=== PATIENT | male | born 1960 | race Two or more races ===

== ENCOUNTER 2018-09-11 15:47 | Inpatient (IN) | payer SELFPAY ==
[~2018-09-11] VITALS: Ht 167.6 cm; Wt 80.9 kg
[2018-09-11] MEDS ORDERED: ONDANSETRON HCL 4 MG/2 ML VIAL IV ONE (16:15)
[2018-09-11] MEDS ORDERED: MORPHINE SULFATE 4 MG/ML SYR/VIAL IV ONE (16:15)
[2018-09-11 16:44] LABS: Basophils # (auto) 0.1 uL; Basophils % (auto) 1.1 % (0.0-2.0); Eosinophils # (auto) 0.1 uL; Eosinophils % (auto) 1.9 % (0.0-7.0); Hematocrit 39.9 % (41.0-53.0); Lymphocytes # (auto) 2.2 uL; Lymphocytes % (auto) 31.9 % (10.0-50.0); Mean Corpuscular Hgb Conc. 35.1 g/dL (32.0-36.0); Mean Corpuscular Volume 90.9 fL (80.0-100.0); Monocytes # (auto) 0.6 uL; Monocytes % (auto) 8.4 % (0.0-12.0); Neutrophils # (auto) 3.9 uL; Neutrophils % (auto) 56.7 % (37.0-80.0); Nucleated Red Blood Cells % 0.1 %; Platelet Count (auto) 212 10^3/uL (140-450); Red Blood Cells 4.39 10^6/uL (4.5-5.90); Red Cell Distribution Width 12.8 % (11.8-14.3); White Blood Cell 6.9 10^3/uL (4.4-10.8)
[2018-09-11 16:50] LABS: INR 0.96 (0.9-1.15); Partial Thromboplastin Time 24.7 sec (23.64-32.05)
[2018-09-11 16:52] LABS: Albumin 3.4 g/dL (3.4-5.0); BUN/Creatinine Ratio 33.7; Calcium 8.6 mg/dL (8.5-10.1); Potassium 4.4 mmol/L (3.5-5.1)
[2018-09-11 16:55] LABS: Bilirubin, Total 0.4 mg/dL (0.2-1.0); Total Protein 7.2 g/dL (6.4-8.2)
[2018-09-11] MEDS ORDERED: MORPHINE SULF INJ 2 MG/ML SYRINGE 1ML IV PRN (19:30)
[2018-09-11] MEDS ORDERED: NITROGLYCERIN 0.4 MG SL TAB SL PRN (19:30)
[2018-09-11] MEDS ORDERED: SODIUM CHLORIDE 0.9% 1,000 ML IV ONE (19:30)
[2018-09-11] MEDS ORDERED: DEXTROSE (50%) 50ML SYRG IV PRN (19:30)
[2018-09-11] MEDS ORDERED: POLYETHYLENE GLYCOL 17 GM PWDR PO PRN (19:30)
[2018-09-11] MEDS ORDERED: ONDANSETRON HCL 4 MG/2 ML VIAL IV PRN (19:30)
[2018-09-11 20:51] VITALS: BP 101/66
--- NOTE | 2018-09-11 20:51 | NUR ---
MS admit from ER TREVORLUCIO admitted to [facility] room 288B. Patient oriented to PANCHO GARCIA, primary RN, unit, room, bed, and unit policies regarding patient care and visiting hours. Room air, pain level 0/10, and ambulates independently without assistive devices. Bed locked in lowest position, side rails up x2, and call light within reach. IV 20 g in right forearm running x1 bag NS at 100 ml/hr inserted on 09/11/18. Skin intact. Patient weighed by bedscale and encouraged to call if they need something. All questions and concerns addressed, patient verbalized understanding.
[2018-09-11] MEDS: metroNIDAZOLE 500MG/100ML 100 ML IV SCH (22:28)
[2018-09-11] MEDS: ACCU-CHEK COMFORT CURVE STRIP VI SCH (22:29)
[2018-09-11] MEDS: InsuLIN REG 1unit/0.01ml Soln (100units/ml) SC SCH (22:29)
[2018-09-11] MEDS: DOCUSATE SOD 100 MG CAP PO SCH (22:29)
[2018-09-11] MEDS: GABAPENTIN 100 MG CAP PO SCH (22:29)
[2018-09-11] MEDS ORDERED: METF-370 PO (23:05)
[2018-09-11] MEDS ORDERED: GLIP-115 PO (23:05)
[2018-09-12] MEDS ORDERED: TEMAZEPAM 15 MG CAP PO PRN (00:05)
[2018-09-12 05:37] VITALS: BP 114/71
[2018-09-12] MEDS: ACCU-CHEK COMFORT CURVE STRIP VI SCH ×4 (05:48→22:13)
[2018-09-12] MEDS: InsuLIN REG 1unit/0.01ml Soln (100units/ml) SC SCH ×4 (05:48→22:47)
[2018-09-12] MEDS: metroNIDAZOLE 500MG/100ML 100 ML IV SCH ×3 (05:48→22:12)
[2018-09-12 06:22] LABS: Basophils # (auto) 0.1 uL; Basophils % (auto) 1.1 % (0.0-2.0); Eosinophils # (auto) 0.2 uL; Eosinophils % (auto) 3.5 % (0.0-7.0); Hematocrit 38.4 % (41.0-53.0); Hemoglobin 13.7 g/dL (13.5-17.5); Lymphocytes # (auto) 2.7 uL; Lymphocytes % (auto) 37.8 % (10.0-50.0); Mean Corpuscular Hemoglobin 32.1 pg (28.0-32.0); Mean Corpuscular Hgb Conc. 35.7 g/dL (32.0-36.0); Monocytes # (auto) 0.6 uL; Monocytes % (auto) 7.9 % (0.0-12.0); Neutrophils # (auto) 3.5 uL; Neutrophils % (auto) 49.7 % (37.0-80.0); Nucleated Red Blood Cells % 0.1 %; Platelet Count (auto) 217 10^3/uL (140-450); Red Blood Cells 4.26 10^6/uL (4.5-5.90); Red Cell Distribution Width 12.6 % (11.8-14.3); White Blood Cell 7.1 10^3/uL (4.4-10.8)
[2018-09-12 06:23] LABS: Calcium 8.5 mg/dL (8.5-10.1); Potassium 3.9 mmol/L (3.5-5.1)
[2018-09-12 06:25] LABS: BUN/Creatinine Ratio 36.8
[2018-09-12 08:30] VITALS: BP 115/73
[2018-09-12] MEDS: DOCUSATE SOD 100 MG CAP PO SCH (11:27)
[2018-09-12] MEDS: LEVOFLOXACIN 500MG 100 ML IV SCH (11:27)
--- NOTE | 2018-09-12 12:42 | NUR ---
Gave pt DPA. Pt stated he did not ask for one.
[2018-09-12] MEDS: GABAPENTIN 100 MG CAP PO SCH ×2 (12:49→22:12)
[2018-09-12 13:09] VITALS: BP 119/70
[2018-09-12] MEDS ORDERED: GOLYTELY 4L KIT PO ONE (13:45)
[2018-09-12] MEDS: PANTOPRAZOLE 40 MG TAB PO SCH ×2 (14:46→22:13)
[2018-09-12 17:30] VITALS: BP 109/60
[2018-09-12] MEDS: MORPHINE SULF INJ 2 MG/ML SYRINGE 1ML IV PRN (19:35)
--- NOTE | 2018-09-12 19:45 | NUR ---
Assumed care of patient. Patient is sitting in chair at bedside. A&Ox4. C/O 8/10 upper abd pain. Patient medicated for pain per orders. Patient is on room air with no distress or SOB noted.Discussed POC, and patient verbalizes understanding. Patient encouraged to call for assistance if needed. Will continue to monitor PRN.
[2018-09-12 21:38] VITALS: BP 130/76
[2018-09-12] MEDS ORDERED: TEMAZEPAM 15 MG CAP PO SCH (22:00)
--- NOTE | 2018-09-13 | NUR ---
Patient instructed that he may not eat or drink anything beginning at this time due to scheduled procedures. Patient verbalizes understanding.
[2018-09-13 05:19] VITALS: BP 114/66
[2018-09-13] MEDS: metroNIDAZOLE 500MG/100ML 100 ML IV SCH ×3 (05:58→22:28)
[2018-09-13] MEDS: InsuLIN REG 1unit/0.01ml Soln (100units/ml) SC SCH ×4 (05:58→22:29)
[2018-09-13] MEDS: ACCU-CHEK COMFORT CURVE STRIP VI SCH ×4 (05:59→22:28)
[2018-09-13] MEDS ORDERED: GOLYTELY 4L KIT PO ONE (06:00)
--- NOTE | 2018-09-13 07:45 | NUR ---
Opening Shift Note Assumed care of patient, awake, alert, and oriented x4. No S/S of distress/SOB, but patient is reporting abdominal pain of 5/10. IV is in right forearm 20 gauge asymptomatic, intact, patent, and saline locked. Bed is locked and in lowest position and call light is within reach. Instructed on POC and to call for assist PRN, and patient verbalized understanding. Will continue to monitor for changes Q1hr and PRN.
[2018-09-13 09:01] VITALS: BP 117/68
--- NOTE | 2018-09-13 09:30 | NUR ---
IV removal IV DC'd with clean sterile technique, catheter fully intact. Pressure dressing applied to site. Patient tolerated well.
--- NOTE | 2018-09-13 10:00 | NUR ---
IV insertion IV access obtained, via clean sterile technique by inserting gauge catheter at 20 after 1 attempt. IV secured properly. No trauma to site. Patient tolerated well.
[2018-09-13] MEDS: LEVOFLOXACIN 500MG 100 ML IV SCH (10:23)
[2018-09-13] MEDS: MORPHINE SULF INJ 2 MG/ML SYRINGE 1ML IV PRN ×2 (10:23→19:45)
[2018-09-13] MEDS: PANTOPRAZOLE 40 MG TAB PO SCH (10:23)
[2018-09-13] MEDS: GABAPENTIN 100 MG CAP PO SCH ×2 (10:24→22:28)
[2018-09-13] MEDS ORDERED: FLUMAZENIL 0.1 MG/ML INJ 10ML MDV IV ONE (10:24)
[2018-09-13] MEDS ORDERED: LIDOCAINE VISCOUS 2% 15ML UD ONE (10:24)
[2018-09-13] MEDS ORDERED: SODIUM CHLORIDE LOCK 10 ML ONE (10:24)
[2018-09-13] MEDS ORDERED: NALOXONE HCL 0.4 MG/ML VIAL ONE (10:24)
[2018-09-13] MEDS ORDERED: diphenhdrAMINE HCL 50 MG/1 ML VL ONE (10:25)
--- NOTE | 2018-09-13 11:00 | NUR ---
Pre-op Patient taken down to pre-op via hospital bed. No distress noted at time of departure.
[2018-09-13] MEDS: MIDAZOLAM HCL 5 MG/ML-1ML VIAL ONE ×2 (12:25→12:29)
[2018-09-13] MEDS: fentaNYL CITRATE 100 MCG/2 ML VL ONE ×2 (12:25→12:29)
[2018-09-13 13:18] VITALS: BP 121/77
--- NOTE | 2018-09-13 13:41 | NUR ---
Patient returned from Post-op via hospital bed. No distress noted at time of arrival. Will continue to monitor patient Q1.
[2018-09-13 14:20] LABS: Urine Bacteria NONE SEEN /hpf (None Seen); Urine Blood Negative /uL (Negative); Urine Specific Gravity 1.015 (1.001-1.035); Urine WBC <1 /hpf (0 - 3)
[2018-09-13 16:30] VITALS: BP 110/69
--- NOTE | 2018-09-13 19:30 | NUR ---
OPENING SHIFT NOTE. Patient is lying in bed, with family at bedside. A&Ox4. C/O 11/18 upper abdominal pain. Patient medicated for pain according to orders. Patient is currently on room air with no s/s of SOB or distress. POC discussed with patient and family who verbalize understanding. Bed in low locked position and call lombardi is within reach. Patient encouraged to call for assistance if needed. Will continue to monitor PRN.
[2018-09-13 22:00] VITALS: BP 108/70
[2018-09-14 05:00] VITALS: BP 117/71
[2018-09-14] MEDS: metroNIDAZOLE 500MG/100ML 100 ML IV SCH (05:44)
[2018-09-14] MEDS: InsuLIN REG 1unit/0.01ml Soln (100units/ml) SC SCH ×2 (06:23→11:30)
[2018-09-14] MEDS: ACCU-CHEK COMFORT CURVE STRIP VI SCH ×2 (06:24→11:30)
--- NOTE | 2018-09-14 07:30 | NUR ---
Opening Shift Note Assumed care of patient, awake, alert, and oriented x4. No S/S of distress/SOB, but patient reporting medial abdominal pain of 8/10. IV is in right forearm 20 gauge asymptomatic, intact, patent, and saline locked. Bed locked and in lowest position and call light is within reach. Instructed on POC and to call for assist PRN, and patient verbalized understanding. Will continue to monitor for changes Q1hr and PRN.
[2018-09-14 09:00] VITALS: BP 100/65
[2018-09-14] MEDS: LEVOFLOXACIN 500MG 100 ML IV SCH (09:02)
[2018-09-14] MEDS: GABAPENTIN 100 MG CAP PO SCH (09:02)
[2018-09-14] MEDS: MORPHINE SULF INJ 2 MG/ML SYRINGE 1ML IV PRN (09:02)
[2018-09-14] MEDS ORDERED: PANTOPRAZOLE 40 MG TAB PO SCH (10:00)
[2018-09-14] MEDS ORDERED: LEVO-28 PO (10:22)
[2018-09-14] MEDS ORDERED: METR500T PO (10:22)
--- NOTE | 2018-09-14 11:50 | NUR ---
Discharge instructions given as ordered. Encourage to follow up with PMD as instructed. All questions and concerns addressed. Patient verbalized understanding. Medication reconciliation form completed and copy given to patient. IV removed with catheter intact, pressure dressing applied. Patient walked to vehicle with all personal belongings, accompanied family member. No distress noted at time of departure.
== END 2018-09-14 11:50 | disposition home or self-care (01) | DRG 392 ==
LOC: ER 15:49 → OVERFLOW 19:39 → WEST WING 20:51
PROVIDERS: ADMIT Nurse Practitioner Acute Care; ATTEND Internal Medicine
PROC: 0DB68ZX Excision of Stomach, Via Natural or Artificial Opening Endoscopic, Diagnostic (ICD-10-PCS; principal; 2018-09-13 12:21)
PROC: 0DJD8ZZ Inspection of Lower Intestinal Tract, Via Natural or Artificial Opening Endoscopic (ICD-10-PCS; 2018-09-13 12:21)
DX: K29.70 Gastritis, unspecified, without bleeding (principal); K57.32 Diverticulitis of large intestine without perforation or abscess without bleeding; K52.9 Noninfective gastroenteritis and colitis, unspecified; E11.42 Type 2 diabetes mellitus with diabetic polyneuropathy; K59.00 Constipation, unspecified; R59.9 Enlarged lymph nodes, unspecified; Z79.84 Long term (current) use of oral hypoglycemic drugs
CPT/HCPCS: 36415; 71045; 74176; 80048; 80053; 80061; 81001; 82150; 82962; 83036; 83690; 85025; 85610; 85730; 86850; 86900; 86901; 93005; 93925; 94761; 96374; 96375; G0378; J1815; J1956; J2250; J2405; J3490

== ENCOUNTER 2018-10-05 16:34 | Inpatient (IN) | payer SELFPAY ==
[~2018-10-05] VITALS: Ht 170.2 cm; Wt 153.0 kg
[~2018-10-05 16:34] MED LIST: GLIP-115 PO; LEVO-28 PO; METF-370 PO; METR500T PO
[2018-10-05] MEDS ORDERED: SODIUM CHLORIDE 0.9% 1,000 ML IVB ONE (16:54)
[2018-10-05 17:36] LABS: Basophils # (auto) 0.1 uL; Basophils % (auto) 1.1 % (0.0-2.0); Eosinophils # (auto) 0.1 uL; Eosinophils % (auto) 2.1 % (0.0-7.0); Hemoglobin 14.8 g/dL (13.5-17.5); Lymphocytes # (auto) 1.8 uL; Lymphocytes % (auto) 28.2 % (10.0-50.0); Mean Corpuscular Hemoglobin 31.7 pg (28.0-32.0); Mean Corpuscular Hgb Conc. 35.3 g/dL (32.0-36.0); Mean Corpuscular Volume 89.8 fL (80.0-100.0); Monocytes # (auto) 0.5 uL; Monocytes % (auto) 8.1 % (0.0-12.0); Neutrophils # (auto) 3.9 uL; Neutrophils % (auto) 60.5 % (37.0-80.0); Platelet Count (auto) 232 10^3/uL (140-450); Red Blood Cells 4.67 10^6/uL (4.5-5.90); Red Cell Distribution Width 13.2 % (11.8-14.3); White Blood Cell 6.5 10^3/uL (4.4-10.8)
[2018-10-05 17:47] LABS: Albumin 3.3 g/dL (3.4-5.0); BUN/Creatinine Ratio 16.2; Calcium 8.4 mg/dL (8.5-10.1); Potassium 4.1 mmol/L (3.5-5.1)
[2018-10-05 17:50] LABS: Bilirubin, Total 0.4 mg/dL (0.2-1.0); Total Protein 7.4 g/dL (6.4-8.2)
[2018-10-05] MEDS ORDERED: ONDANSETRON HCL 4 MG/2 ML VIAL IV ONE (18:00)
[2018-10-05] MEDS ORDERED: PIPERACILLIN-TAZOB 3.375GM 100 ML IV ONE (18:00)
[2018-10-05] MEDS ORDERED: MORPHINE SULFATE 4 MG/ML SYR/VIAL IV ONE (18:00)
[2018-10-05] MEDS ORDERED: ATOR10TA52 PO (18:53)
[2018-10-05 19:00] LABS: Urine Bacteria NONE SEEN /hpf (None Seen); Urine Blood Negative /uL (Negative); Urine Hyaline Cast FEW /lpf (0 - 2); Urine Mucus MODERATE (None Seen); Urine WBC 5 /hpf (0 - 3)
[2018-10-05] MEDS ORDERED: PROMETHAZINE HCL 25 MG/ML 1ML IV PRN (19:00)
[2018-10-05] MEDS ORDERED: cefTRIAXone 1GM/50ML D5W 50 ML IV ONE (19:00)
[2018-10-05] MEDS ORDERED: ACETAMINOPHEN 500 MG TAB PO PRN (19:00)
[2018-10-05] MEDS ORDERED: DEXTROSE (50%) 50ML SYRG IV PRN (19:00)
[2018-10-05] MEDS ORDERED: FAMOTIDINE (10MG/ML) 2ML VL IV ONE (19:15)
[2018-10-05] MEDS: SODIUM CHLORIDE 0.9% 1,000 ML IV SCH ×2 (19:15→20:13)
[2018-10-05 19:45] VITALS: BP 113/69
--- NOTE | 2018-10-05 19:50 | NUR ---
MS admit from ER LUCIO MURRAY admitted to [facility]. Patient oriented to ROHAN MEZA OCA, primary RN, unit, room, bed, and unit policies regarding patient care and visiting hours. Patient weighed by bedscale and encouraged to call if they need something. All questions and concerns addressed, patient verbalized understanding. Bed in lowest locked position, call light within reach, side rails up x2. Will continue to monitor Q1hr and PRN.
[2018-10-05] MEDS: NALBUPHINE HCL 10 MG/1ml INJECTION IV PRN (20:04)
[2018-10-05] MEDS: metroNIDAZOLE 500MG/100ML 100 ML IV SCH (21:46)
[2018-10-05 22:00] VITALS: BP 113/69
[2018-10-06] MEDS: ACCU-CHEK COMFORT CURVE STRIP VI SCH ×5 (00:19→23:55)
[2018-10-06] MEDS: NALBUPHINE HCL 10 MG/1ml INJECTION IV PRN ×3 (03:03→21:03)
[2018-10-06 05:00] VITALS: BP 125/70
[2018-10-06] MEDS: metroNIDAZOLE 500MG/100ML 100 ML IV SCH ×3 (05:54→21:28)
[2018-10-06] MEDS: InsuLIN REG 1unit/0.01ml Soln (100units/ml) SC SCH ×5 (05:54→23:55)
[2018-10-06 08:00] VITALS: BP 139/75
[2018-10-06 08:38] VITALS: BP 139/75
[2018-10-06] MEDS: FAMOTIDINE (10MG/ML) 2ML VL IV SCH ×2 (09:34→21:28)
[2018-10-06] MEDS: cefTRIAXone 1GM/50ML D5W 50 ML IV SCH (09:34)
[2018-10-06 12:50] VITALS: BP 141/78
[2018-10-06] MEDS: SODIUM CHLORIDE 0.9% 1,000 ML IV SCH ×2 (14:55→23:55)
[2018-10-06 16:30] VITALS: BP 127/72
[2018-10-06] MEDS: traMADol HCL 50 MG TAB PO PRN (17:00)
--- NOTE | 2018-10-06 18:29 | NUR ---
BARIUM ENEMA CANNOT BE DONE. THERE IS NO RADIOLOGIST. WILL NOTIFY THE PHYSICIAN.
--- NOTE | 2018-10-06 18:30 | NUR ---
SPOKE WITH DR. Rohan COPE. THE PHYSICIAN WANTS THE PATIENT TO HAVE A SURGICAL CONSULT TO RULE OUT ANY OBSTRUCTION OR CANCER RELATED TO THE CT RESULTS. I PLACED ORDERS. SHE WAS ALSO INFORMED THAT THE RADIOLOGIST IS OUT FOR THE WEEKEND AND THE BARIUM ENEMA CANNOT BE DONE UNTIL TUESDAY.
--- NOTE | 2018-10-06 19:20 | NUR ---
Opening Shift Note Assumed care of patient, awake and alert. No S/S of distress/SOB or pain. Instructed on POC and to call for assist PRN. Bed in lowest locked position, call light within reach, side rails up x2. Will continue to monitor for changes Q1hr and PRN.
[2018-10-06 22:00] VITALS: BP 123/65
[2018-10-07 04:30] VITALS: BP 130/77
[2018-10-07] MEDS: ACCU-CHEK COMFORT CURVE STRIP VI SCH ×4 (05:46→22:57)
[2018-10-07] MEDS: InsuLIN REG 1unit/0.01ml Soln (100units/ml) SC SCH ×4 (05:46→22:49)
[2018-10-07] MEDS: metroNIDAZOLE 500MG/100ML 100 ML IV SCH ×3 (05:46→22:01)
--- NOTE | 2018-10-07 07:20 | NUR ---
Opening Shift Note Assumed care of patient, awake and alert. No S/S of distress/SOB or pain. Instructed on POC and to call for assist PRN, will continue to monitor for changes Q1hr and PRN. Bed locked in lowest position with two side rails up and call light in reach.
[2018-10-07 08:00] VITALS: BP 138/76
[2018-10-07] MEDS: NALBUPHINE HCL 10 MG/1ml INJECTION IV PRN ×4 (08:53→22:41)
[2018-10-07] MEDS: FAMOTIDINE (10MG/ML) 2ML VL IV SCH ×2 (08:53→22:01)
[2018-10-07] MEDS: cefTRIAXone 1GM/50ML D5W 50 ML IV SCH (08:54)
[2018-10-07 09:00] VITALS: BP 138/76
[2018-10-07] MEDS: SODIUM CHLORIDE 0.9% 1,000 ML IV SCH ×2 (10:47→22:01)
[2018-10-07 13:00] VITALS: BP 126/71
--- NOTE | 2018-10-07 16:29 | NUR ---
ROUNDS PATIENT RESTING NO SIGNS AND SYMPTOMS OF DISTRESS NOTED.
[2018-10-07 17:00] VITALS: BP 146/68
--- NOTE | 2018-10-07 19:30 | NUR ---
Opening Shift Note Assumed care of patient, awake and alert. No S/S of distress/SOB or pain at this time. RN instructed pt on POC and to call for assist PRN. This RN will continue to monitor for changes Q1hr and PRN. Pt watching TV. HOB in semi-Manuel's position. Bed in low position. Nurse call light to R of pt's R thigh.
[2018-10-07] MEDS: traMADol HCL 50 MG TAB PO PRN (20:58)
[2018-10-08 04:30] VITALS: BP 124/66
[2018-10-08] MEDS: InsuLIN REG 1unit/0.01ml Soln (100units/ml) SC SCH ×3 (06:00→17:49)
[2018-10-08] MEDS: metroNIDAZOLE 500MG/100ML 100 ML IV SCH ×3 (06:00→21:31)
[2018-10-08] MEDS: ACCU-CHEK COMFORT CURVE STRIP VI SCH ×3 (06:39→17:49)
[2018-10-08] MEDS: SODIUM CHLORIDE 0.9% 1,000 ML IV SCH ×2 (07:30→16:47)
[2018-10-08 08:00] VITALS: BP 127/74
[2018-10-08] MEDS: cefTRIAXone 1GM/50ML D5W 50 ML IV SCH (08:07)
[2018-10-08] MEDS: FAMOTIDINE (10MG/ML) 2ML VL IV SCH ×2 (08:08→21:31)
[2018-10-08] MEDS: NALBUPHINE HCL 10 MG/1ml INJECTION IV PRN ×3 (08:08→21:43)
--- NOTE | 2018-10-08 08:15 | NUR ---
PATIENT STILL COMPLAINING OF ABDOMINAL PAIN, MEDICATED PER THE EMAR AND WILL REASSES.
--- NOTE | 2018-10-08 08:20 | NUR ---
RECEIVED CALL FROM DR ZEPEDA SURGICAL CONSULT. PER DR ZEPEDA HE WILL SEE PATIENT TOMORROW.
[2018-10-08 09:00] VITALS: BP 127/74
--- NOTE | 2018-10-08 09:59 | NUR ---
DR RAMEZ ALCOCER.
[2018-10-08 12:56] VITALS: BP 123/74
[2018-10-08] MEDS: traMADol HCL 50 MG TAB PO PRN (16:15)
[2018-10-08 17:00] VITALS: BP 146/79
--- NOTE | 2018-10-08 19:40 | NUR ---
Opening Shift Note Assumed care of patient, awake and alert. No S/S of distress/SOB or pain. Bed locked in lowest position, side rails upx2, call light within reach. Instructed on POC and to call for assist PRN, will continue to monitor for changes Q1hr and PRN.
[2018-10-08 22:49] VITALS: BP 132/72
[2018-10-09] MEDS: ACCU-CHEK COMFORT CURVE STRIP VI SCH ×3 (00:04→11:51)
[2018-10-09 05:14] VITALS: BP 129/70
[2018-10-09] MEDS: SODIUM CHLORIDE 0.9% 1,000 ML IV SCH (05:42)
[2018-10-09] MEDS: metroNIDAZOLE 500MG/100ML 100 ML IV SCH (05:43)
[2018-10-09] MEDS: InsuLIN REG 1unit/0.01ml Soln (100units/ml) SC SCH ×3 (05:43→11:51)
[2018-10-09] MEDS: NALBUPHINE HCL 10 MG/1ml INJECTION IV PRN (06:44)
--- NOTE | 2018-10-09 07:35 | NUR ---
OPENING SHIFT NOTE PATIENT LAYING IN BED WITH EYES CLOSED CHEST RISE AND FALL VISUALIZED. SHOWING NO S/S OF SOB PAIN OR DISTRESS. NPO WRITTEN ON BOARD DUE TO BARIUM [facility]EMA THAT WILL TAKE PLACE TODAY. BED IS IN LOWEST LOCKED POSITION CALL LIGHT WITH IN REACH WILL CONTINUE TO MONITOR
[2018-10-09] MEDS ORDERED: BARIUM SULFATE 98% 340 GM PWDR ONE ×2 (09:13→10:00)
[2018-10-09] MEDS ORDERED: EZ PAQUE SUSP 12OZ BTL ONE (09:15)
[2018-10-09] MEDS: FAMOTIDINE (10MG/ML) 2ML VL IV SCH (09:28)
[2018-10-09] MEDS: cefTRIAXone 1GM/50ML D5W 50 ML IV SCH (09:29)
[2018-10-09 09:34] VITALS: BP 134/80
[2018-10-09] MEDS ORDERED: GASTROGRAFIN 120 ML SOL ONE (10:00)
--- NOTE | 2018-10-09 11:12 | NUR ---
PATIENT VERBALIZED WANTING TO SPEAK TO DR COPE PATIENT VERBALIZED WANTING TO GO HOME. OR SPEAK TO DR. TERRIE COPE
--- NOTE | 2018-10-09 11:12 | NUR ---
HOSPITALIST MADE AWARE OF PATIENT VERBALIZING WANTING TO GO HOME. WILL EDUCATE PATIENT RISKS AND BENEFITS
--- NOTE | 2018-10-09 11:12 | NUR ---
HOSPITALIST AT BEDSIDE JUSTIN AT BEDSIDE. REQUESTED FOR PAGE OF DR COPE FOR FURTHER ORDERS AND EVALUATION
--- NOTE | 2018-10-09 11:18 | NUR ---
DR COPE PAGED AWAITING CALL BACK
[2018-10-09 12:00] VITALS: BP 142/76
--- NOTE | 2018-10-09 12:53 | NUR ---
SPOKE TO DR COPE VIA TELEPHONE VERBALIZED TO CONSULT DR MORRISSEY WELL A SURGICAL CONSULT. PRISCA ALSO VERBALIZED FOR DEMOLITION SPECIALIST TO BE ON PATIENTS CASE DUE TO LACK OF INSURANCE WILL CARRY OUT ORDERS
[2018-10-09 14:02] VITALS: BP 142/76
--- NOTE | 2018-10-09 14:43 | NUR ---
DISCHARGE NOTE PATIENT AWAKE AND ALERT X4, EX AT BEDSIDE. IV REMOVED CATHETER INTACT PRESSER DRESSING APPLIED. ALL DISCHARGE INSTRUCTIONS WERE GIVEN ALL QUESTIONS AND CONCERNS WERE ADDRESSED. PATIENT VERBALIZED UNDERSTANDING. PATIENT REQUESTED TO AMBULATE OUT TO PERSONAL VEHICLE. PATIENT AMBULATED WITH STEADY GAIT. PATIENT SHOWED NO S/S OF DISTRESS OR SOB. AND DENIED PAIN.
== END 2018-10-09 14:45 | disposition home or self-care (01) | DRG 392 ==
LOC: ER 16:38 → OVERFLOW 16:39 → EAST 19:37
PROVIDERS: ADMIT Internal Medicine; ATTEND Internal Medicine
DX: K52.9 Noninfective gastroenteritis and colitis, unspecified (principal); K56.699 Other intestinal obstruction unspecified as to partial versus complete obstruction; E11.21 Type 2 diabetes mellitus with diabetic nephropathy; E11.42 Type 2 diabetes mellitus with diabetic polyneuropathy; E78.5 Hyperlipidemia, unspecified; Z82.49 Family history of ischemic heart disease and other diseases of the circulatory system; Z83.3 Family history of diabetes mellitus
CPT/HCPCS: 36415; 74176; 74270; 80053; 81001; 82150; 82378; 82962; 83036; 83605; 83690; 85025; 85652; 86141; 87040; 87081; 93005; 96361; 96374; 96375; G0378; J0696; J1815; J2405; J2543; J3490

== ENCOUNTER 2022-08-25 06:13 | Day surgery (SDC) | payer MEDICARE, MEDICAID ==
[2022-08-20 10:38] LABS: Basophils # (auto) 0.1 10 ^3/uL (0-0.2); Basophils % (auto) 0.8 % (0.0-2.0); Eosinophils # (auto) 0.2 10 ^3/uL (0-0.8); Eosinophils % (auto) 1.7 % (0.0-7.0); Hematocrit 39.2 % (41.0-53.0); Hemoglobin 13.5 g/dL (13.5-17.5); Lymphocytes % (auto) 16.7 % (10.0-50.0); Mean Corpuscular Hemoglobin 30.7 pg (28.0-32.0); Mean Corpuscular Hgb Conc. 34.6 g/dL (32.0-36.0); Monocytes # (auto) 0.9 10 ^3/uL (0-1.3); Monocytes % (auto) 7.9 % (0.0-12.0); Neutrophils # (auto) 8.5 10 ^3/uL (1.6-8.6); Neutrophils % (auto) 72.9 % (37.0-80.0); Nucleated Red Blood Cells % 0.1 %; Red Cell Distribution Width 13.8 % (11.8-14.3); White Blood Cell 11.7 10^3/uL (4.4-10.8)
[2022-08-20 10:44] LABS: Urine Bacteria NONE SEEN /hpf (None Seen); Urine Blood TRACE /uL (Negative); Urine Hyaline Cast FEW /lpf (0 - 2); Urine Mucus FEW (None Seen); Urine Specific Gravity 1.023 (1.001-1.035); Urine WBC 3 /hpf (0 - 3)
[2022-08-20 10:57] LABS: INR 1.03 (0.9-1.15); Partial Thromboplastin Time 31.6 sec (24.6-33.4)
[2022-08-20 11:19] LABS: Albumin 3.3 g/dL (3.4-5.0); BUN/Creatinine Ratio 18.6 (10.0-20.0); Bilirubin, Total 0.5 mg/dL (0.2-1.0); Calcium 8.6 mg/dL (8.5-10.1); Total Protein 7.4 g/dL (6.4-8.2)
[~2022-08-25] VITALS: Ht 172.7 cm; Wt 90.7 kg
[~2022-08-25 06:13] MED LIST changes: +CETI10TA2 PO; +FENO134C16 PO; -GLIP-115 PO; +INSU100I43 SC; +INSU1INJ19 SC; -LEVO-28 PO; -METF-370 PO; -METR500T PO; +MULT-1018 OR; +OMEP20TA PO
[2022-08-25] MEDS ORDERED: ceFAZolin 1GM/50ML 100 ML IV ONE (06:21)
[2022-08-25] MEDS ORDERED: ROPIVACAINE 0.5% (5MG/ML) 20ML AMPULE IJ ONE (07:25)
[2022-08-25] MEDS ORDERED: HYDROmorphone HCL 2 MG/ML VL/or syr IV PRN ×2 (07:30)
[2022-08-25] MEDS ORDERED: MORPHINE SULFATE INJ 2 MG/ml SYRG IV PRN (07:30)
[2022-08-25] MEDS ORDERED: METOCLOPRAMIDE HCL 5MG/ml INJ 2ml VIAL IV PRN (07:30)
[2022-08-25] MEDS ORDERED: ACCU-CHEK COMFORT CURVE STRIP VI ONE (07:30)
[2022-08-25] MEDS ORDERED: BACITRACIN TOP OINT 1 UD PKG TOP ONE ×2 (07:32→08:40)
[2022-08-25] MEDS ORDERED: DexAMETHasone SOD PHOS 10MG/1ML VIAL INJ ONE (07:47)
[2022-08-25] MEDS ORDERED: SODIUM CHLORIDE LOCK 10 ML ONE (07:47)
[2022-08-25] MEDS ORDERED: ONDANSETRON HCL 4 MG/2 ML VIAL ONE (07:47)
[2022-08-25] MEDS ORDERED: PROPOFOL 10 MG/ML 20 ML IV ONE (07:47)
[2022-08-25] MEDS ORDERED: MIDAZOLAM HCL 2MG/2ML 2ml VIAL (1mg/ml) ONE (07:47)
[2022-08-25] MEDS ORDERED: fentaNYL CITRATE 100 MCG/2 ML VL ONE (07:47)
[2022-08-25] MEDS ORDERED: methylPREDNISolone ACETATE 80 MG/ML VL ONE (08:18)
[2022-08-25 09:50] VITALS: BP 123/69
== END 2022-08-25 10:00 | disposition home or self-care (01) ==
LOC: SUR 06:13
PROVIDERS: ATTEND Podiatrist Foot & Ankle Surgery
DX: M62.471 Contracture of muscle, right ankle and foot (principal); M21.961 Unspecified acquired deformity of right lower leg; L97.519 Non-pressure chronic ulcer of other part of right foot with unspecified severity; M79.671 Pain in right foot; T25.031A Burn of unspecified degree of right toe(s) (nail), initial encounter; E11.8 Type 2 diabetes mellitus with unspecified complications; L89.893 Pressure ulcer of other site, stage 3
CPT/HCPCS: 27685; 29999; 36415; 80053; 81001; 82962; 85025; 85610; 85730; J0690; J1040; J1100; J2250; J2405; J2704; J2795; J3010